=== PATIENT | female | born 1970 | race African-American/Black ===

== ENCOUNTER → 2018-09-02 | Outpatient (CLI) | payer BC ==
--- NOTE | 2018-09-02 13:15 | RAD ---
DATE: 09/02/2018 EXAM: MAMMO JAD SCREENING BILATERAL HISTORY: Routine screening COMPARISON: Baseline study This study was interpreted with the benefit of Computerized Aided Detection (CAD). Breast Density: DENSE The breast parenchyma is dense, which could reduce the sensitivity of mammography. Breast parenchyma level density D. FINDINGS: 2-D and 3-D tomosynthesis imaging was performed in CC and MLO projections. The fibroglandular tissues are extremely dense in a heterogeneous pattern. No spiculated mass or architectural distortion is seen. No suspicious microcalcifications are evident. Benign-appearing lymph nodes are present in both axillary regions. IMPRESSION: There is no mammographic evidence of malignancy in either breast. BI-RADS CATEGORY: 2 BENIGN FINDING(S) RECOMMENDED FOLLOW-UP: 12M 12 MONTH FOLLOW-UP PQRS compliance statement: Patient information was entered into a reminder system with a target due date for the next mammogram. Mammography is a sensitive method for finding small breast cancers, but it does not detect them all and is not a substitute for careful clinical examination. A negative mammogram does not negate a clinically suspicious finding and should not result in delay in biopsying a clinically suspicious abnormality. "Our facility is accredited by the [employer] Mammography Program."
== END | disposition home or self-care (01) ==
LOC: MAMMO 10:25
PROVIDERS: ATTEND Family Medicine
DX: Z12.31 Encounter for screening mammogram for malignant neoplasm of breast (principal)
CPT/HCPCS: 77063; 77067

== ENCOUNTER → 2019-05-20 | Outpatient (CLI) | payer BC ==
[2019-05-20 23:06] LABS: DHEA SO4 129.6 ug/dL (41.2-243.7); FSH 5.8 mIU/mL (.)
[2019-05-21 00:06] LABS: LUTEINIZING HORMONE 9.5 mIU/mL (.)
[2019-05-24 12:06] LABS: TESTOSTERONE FREE 0.35 ng/dL (0.10-0.85); TESTOSTERONE TOTAL 22 ng/dL (8-48)
== END | disposition home or self-care (01) ==
LOC: LAB 15:39
PROVIDERS: ATTEND Obstetrics & Gynecology
DX: N94.6 Dysmenorrhea, unspecified (principal)
CPT/HCPCS: 36415; 82627; 82670; 83001; 83002; 84402; 84403

== ENCOUNTER → 2021-09-21 | Outpatient (CLI) | payer BC ==
[2021-09-21 09:25] LABS: BASO # 0.1 x10^3/uL (0.0-0.2); BASO % 2 % (0-3); EOS # 0.3 x10^3/uL (0.0-0.7); EOS % 5 % (0-3); HEMOGLOBIN 11.4 g/dL (12.0-15.5); LYMPH # 1.4 x10^3/uL (1.0-4.8); LYMPH % 19 % (24-48); MEAN CORPUSCULAR HEMOGLOBIN 27 pg (25-35); MEAN CORPUSCULAR HGB CONC 33 g/dL (31-37); MEAN CORPUSCULAR VOLUME 84 fL (79-100); MONO # 0.9 x10^3/uL (0.0-1.1); MONO % 12 % (0-9); NEUT # 4.7 x10^3uL (1.8-7.7); NEUT % 63 % (31-73); PLATELET COUNT 296 x10^3/uL (140-400); RED BLOOD COUNT 4.19 x10^6/uL (3.50-5.40); RED CELL DISTRIBUTION WIDTH 15.8 % (11.5-14.5); WHITE BLOOD COUNT 7.4 x10^3/uL (4.0-11.0)
[2021-09-21 09:34] LABS: ALBUMIN 3.2 g/dL (3.4-5.0); ALBUMIN/GLOBULIN RATIO 0.9 (1.0-1.7); CALCIUM 8.6 mg/dL (8.5-10.1); GFR 71.3; POTASSIUM 3.9 mmol/L (3.5-5.1); TOTAL BILIRUBIN 0.6 mg/dL (0.2-1.0); TOTAL PROTEIN 6.8 g/dL (6.4-8.2)
[2021-09-21 19:44] LABS: CHOLESTEROL/HDL RATIO 3.4; FREE T4 1.11 ng/dL (0.76-1.46); THYROID STIM HORMONE (TSH) 3.205 uIU/mL (0.358-3.740)
== END ==
LOC: LAB 07:34
PROVIDERS: ATTEND Family Medicine
DX: Z00.00 Encounter for general adult medical examination without abnormal findings (principal); I10 Essential (primary) hypertension; Q24.9 Congenital malformation of heart, unspecified
CPT/HCPCS: 36415; 80053; 80061; 84439; 84443; 85025

== ENCOUNTER → 2021-09-23 | Outpatient (CLI) | payer OTHER ==
--- NOTE | 2021-09-24 17:52 | RAD ---
Exam performed: Pelvic Ultrasound. Indication: Menorrhagia Date of Service: 09/23/2021 4:17 PM comparison: None available Technique: Transabdominal Findings: The uterus is somewhat enlarged and is anteverted. Measures 12.3 x 7.1 x 6.0 cm. There are at least 2 uterine fibroids measuring 3.9 x 3.0 x 3.4 cm and 1.9 x 1.9 x 2.5 cm The endometrial stripe 5.4 mm The right ovary measures 3.3 x 2.6 x 1.5 cm , the left ovary measures 2.9 x 2.3 x 2.0 cm. Symmetric v ascularity seen in both ovaries. There is no solid or cystic mass lesion. No free fluid Impression: 1. Uterine fibroids, otherwise unremarkable study Electronically signed by: Mally Zavala MD (09/24/2021 5:49 PM) ANA
== END ==
LOC: US 16:14
PROVIDERS: ATTEND Nurse Practitioner Family
DX: D25.9 Leiomyoma of uterus, unspecified (principal); N92.0 Excessive and frequent menstruation with regular cycle
CPT/HCPCS: 76856

== ENCOUNTER → 2021-11-08 | Outpatient (CLI) | payer BC ==
--- NOTE | 2021-11-08 11:48 | CARD ---
MR#: [id number] Date of Study: 11/08/2021 Ordering Physician: SOCRATES ROMERO, Referring Physician: SOCRATES ROMERO Tech: Preston Elias [facility] APPROVED REPORT EXAM: Two-dimensional and M-mode echocardiogram with Doppler and color Doppler. Other Information Quality : GoodHR: 62bpm Rhythm : NSR INDICATION Palpitations 2D DIMENSIONS Left Atrium(2D)3.1 (1.6-4.0cm)IVSd1.0 (0.7-1.1cm) Aortic Root(2D)2.7 (2.0-3.7cm)LVDd4.3 (3.9-5.9cm) LVOT Diameter1.9 (1.8-2.4cm)PWd1.0 (0.7-1.1cm) LA Bzkkya62 (18-58mL)LVDs2.8 (2.5-4.0cm) FS (%) 36.7 %SV56.8 ml LVEF(%)66.8 (>50%) Aortic Valve AoV Peak Terry.151.6cm/sAoV VTI32.5cm AO Peak GR.9.2mmHgLVOT Peak Terry.98.7cm/s LVOT VTI 22.34cmAO Mean GR.5mmHg GINA (VMAX)1.57au1NZB (VTI)1.90cm2 Mitral Valve MV E Rclqbuah732.0cm/sMV E Peak Gr.4mmHg MV DECEL [id number] A Afsrmqkp49.8cm/s MV E Mean Gr.2mmHgE/A Ratio1.5 Pulmonary Valve PV Peak Vpygrwtw66.2cm/sPV Peak Grad.3mmHg Tricuspid Valve TR P. Iibcfwpu747uq/sTR Peak Gr.21mmHg Pulmonary Vein S1 Hjeilxsf21.4cm/sD2 Xlpyyihr38.8cm/s LEFT VENTRICLE The left ventricle is normal size. There is normal left ventricular wall thickness. The left ventricu lar systolic function is normal and the ejection fraction is within normal range. EF 55% There is nor mal LV segmental wall motion. The left ventricular diastolic function and filling is normal for age. No left ventricle thrombus noted on this study. There is no ventricular septal defect visualized. The re is no left ventricular aneurysm. There is no mass noted in the left ventricle. RIGHT VENTRICLE The right ventricle is normal size. There is normal right ventricular wall thickness. The right ventr icular systolic function is normal. ATRIA The left atrium size is normal. The right atrium size is normal. The interatrial septum is intact wit h no evidence for an atrial septal defect or patent foramen ovale as noted on 2-D or Doppler imaging. AORTIC VALVE The aortic valve is normal in structure and function. Doppler and Color Flow revealed no significant aortic regurgitation. There is no significant aortic valvular stenosis. There is no aortic valvular v egetation. MITRAL VALVE The mitral valve is normal in structure and function. There is no evidence of mitral valve prolapse. There is no mitral valve stenosis. Doppler and Color-flow revealed trace mitral regurgitation. TRICUSPID VALVE The tricuspid valve is normal in structure and function. Doppler and Color Flow revealed trace tricus pid regurgitation. The PA pressure was estimated at 25 mmHg. There is no tricuspid valve prolapse or vegetation. There is no tricuspid valve stenosis. PULMONIC VALVE There is trivial pulmonic regurgitation. There is no pulmonic valvular stenosis. GREAT VESSELS The aortic root is normal in size. The ascending aorta is normal in size. The IVC is normal in size a nd collapses >50% with inspiration. PERICARDIAL EFFUSION There is no pleural effusion. There is no evidence of significant pericardial effusion. Critical Notification Critical Value: No <Conclusion> The left ventricular systolic function is normal and the ejection fraction is within normal range. EF 55% There is normal LV segmental wall motion. Signed by : Kwesi Resendez, Electronically Approved : 11/08/2021 11:48:14
== END ==
LOC: ECHO 07:42
PROVIDERS: ATTEND Internal Medicine Cardiovascular Disease
DX: I37.1 Nonrheumatic pulmonary valve insufficiency (principal); R00.2 Palpitations
CPT/HCPCS: 93306